=== PATIENT | male | born 1945 | race Caucasian/White ===

== ENCOUNTER 2019-12-28 11:08 | Emergency (ER) | payer OTHER ==
[~2019-12-28] VITALS: Ht 172.7 cm; Wt 83.9 kg
[2019-12-28 11:12] VITALS: BP 150/75; Ht 172.7 cm; Wt 83.9 kg
== END 2019-12-28 12:00 | disposition home or self-care (01) ==
LOC: ED 11:08
DX: Z02.89 Encounter for other administrative examinations (principal)